=== PATIENT | male | born 1985 | race Hispanic/Latino ===

== ENCOUNTER 2019-01-27 11:56 | Emergency (ER) | payer OTHER ==
[2019-01-27 12:40] LABS: Urine Blood NEGATIVE (NEG); Urine Glucose 2+ (NEG); Urine Protein 1+ (NEG); Urine Specific Gravity 1.025 (1.005-1.030)
[2019-01-27] MEDS ORDERED: KETOROLAC 30 MG/ML INJ ONE (12:40)
[2019-01-27] MEDS ORDERED: NA CHLORIDE 0.9% 1,000 ML ONE (12:40)
[2019-01-27 12:58] LABS: Absolute Lymphocytes (CBC) 1.3 K/uL (0.7-4.9); Absolute Monocytes 0.3 K/uL (0.1-1.3); Absolute Neutrophil 6.8 K/uL (1.8-8.0); Basophils % 0.3 % (0-1.3); Eosinophils % 0.8 % (0-4.4); Lymphocytes % 15.5 % (15.3-44.8); MPV 10.5 fL (7.6-11.3); Monocytes % 3.3 % (3.3-12.3); RBC Red Blood Cell Count 5.43 M/uL (4.33-5.43)
--- NOTE | 2019-01-27 13:01 | RAD REPORT ---
EXAM DESCRIPTION: US - Abdomen Exam Limited - 01/27/2019 12:55 pm CLINICAL HISTORY: Abdominal pain. COMPARISON: None. FINDINGS: The gallbladder wall is not thickened. A 2 centimeter mobile gallstone present. The biliary tree is normal caliber. IMPRESSION: Cholelithiasis without evidence of cholecystitis
[2019-01-27 13:10] LABS: ALT/SGPT 58 U/L (12-78); AST/SGOT 20 U/L (15-37); Albumin 3.9 g/dL (3.4-5.0); Alkaline Phosphatase 109 U/L (45-117); BUN Blood Urea Nitrogen 14 mg/dL (7-18); Bicarbonate 27 mmol/L (21-32); Bilirubin Direct 0.1 mg/dL (0-0.2); Bilirubin Total 0.3 mg/dL (0.2-1.0); Glucose Level 189 mg/dL (74-106); Lipase 86 U/L (73-393); Potassium 4.1 mmol/L (3.5-5.1); Protein, Total 7.8 g/dL (6.4-8.2); Sodium Level 140 mmol/L (136-145)
--- NOTE | 2019-01-27 13:22 | ER ---
Nurse's Notes [facility] Name: Tank Antoine Age: 33 yrs Sex: Male : 1985 Arrival Date: 01/27/2019 Time: 11:58 Bed 18 Private MD: Diagnosis: Cholelithiasis Presentation: 01/27 11:59 Presenting complaint: RUQ pain and N/V since this morning. Transition of care: patient hb was not received from another setting of care. Onset of symptoms was January 27, 2019. Risk Assessment: Do you want to hurt yourself or someone else? Patient reports no desire to harm self or others. Care prior to arrival: None. 11:59 Method Of Arrival: Ambulatory hb 11:59 Acuity: DARIA 3 hb 13:36 Initial Sepsis Screen: Does the patient meet any 2 criteria? No. Patient's initial tw2 sepsis screen is negative. Does the patient have a suspected source of infection? No. Patient's initial sepsis screen is negative. Historical: - Allergies: 12:01 No Known Allergies; hb - Home Meds: 12:01 lisinopril Oral [Active]; Omeprazole Oral [Active]; hb - PMHx: 12:01 GERD; Hypertension; hb - PSHx: 12:01 None; hb - Immunization history:: Adult Immunizations up to date. - Social history:: Smoking status: Patient/guardian denies using tobacco. - Ebola Screening: : No symptoms or risks identified at this time. Screenin:36 Abuse screen: Denies threats or abuse. Nutritional screening: No deficits noted. tw2 Tuberculosis screening: No symptoms or risk factors identified. Fall Risk None identified. Assessment: 12:00 General: Appears in no apparent distress. Behavior is calm, cooperative, appropriate tw2 for age. Pain: Complains of pain in abdomen. Neuro: Level of Consciousness is awake, alert, obeys commands, Oriented to person, place, time, situation. Cardiovascular: Heart tones S1 S2 Patient's skin is warm and dry. Respiratory: Airway is patent Respiratory effort is even, unlabored, Respiratory pattern is regular, symmetrical, Breath sounds are clear bilaterally. GI: Abdomen is round non-distended, Bowel sounds present X 4 quads. Abd is soft and non tender X 4 quads. : No signs and/or symptoms were reported regarding the genitourinary system. EENT: No signs and/or symptoms were reported regarding the EENT system. Derm: No signs and/or symptoms reported regarding the dermatologic system. Musculoskeletal: Range of motion: intact in all extremities. 13:33 Reassessment: Patient appears in no apparent distress at this time. No changes from tw2 previously documented assessment. Patient and/or family updated on plan of care and expected duration. Pain level reassessed. Patient is alert, oriented x 3, equal unlabored respirations, skin warm/dry/pink. Vital Signs: 12:00 BP 133 / 86; Pulse 77; Resp 16; Temp 97.8; Pulse Ox 97% on R/A; Pain 7/10; hb 13:00 BP 146 / 86; Pulse 86; Resp 17; Pulse Ox 97% on R/A; tw2 13:25 BP 118 / 75; Pulse 64; Resp 18; Pulse Ox 99% on R/A; tw2 ED Course: 11:58 Patient arrived in ED. mr 12:00 Triage completed. hb 12:00 Bed in low position. Call light in reach. Pulse ox on. NIBP on. tw2 12:01 Arm band placed on right wrist. hb 12:12 Anayeli Radford FNP-C is PHCP. kb 12:12 Tk Hand MD is Attending Physician. kb 12:12 Carolann Alvarado RN is Primary Nurse. tw2 12:35 No provider procedures requiring assistance completed. Inserted saline lock: 20 gauge tw2 in right antecubital area, using aseptic technique. Blood collected. 12:55 US Abdomen Limited In Process Unspecified. EDMS 13:37 IV discontinued, intact, No redness/swelling at site. Pressure dressing applied. tw2 intact, bleeding controlled, No redness/swelling at site. Pressure dressing applied. Administered Medications: 12:37 Drug: TORadol 30 mg Route: IVP; Site: right antecubital; tw2 13:33 Follow up: Response: No adverse reaction; Pain is decreased tw2 12:39 Drug: NS 0.9% 1000 ml Route: IV; Rate: 1000 ml; Site: right antecubital; tw2 13:31 Follow up: Response: No adverse reaction; IV Status: Order to discontinue infusion; IV tw2 Intake: 100ml ; pt states "they never hooked me up when they brought me back and i am just ready to go home" Intake: 13:31 IV: 100ml; Total: 100ml. tw2 Outcome: 13:22 Discharge ordered by MD. hernandez 13:36 Discharged to home ambulatory. tw2 13:36 Condition: stable 13:36 Discharge instructions given to patient, Instructed on discharge instructions, follow up and referral plans. no drinking with medication, no driving heavy equipment, medication usage, Demonstrated understanding of instructions, follow-up care, medications, Prescriptions given X 2. 13:38 Patient left the ED. tw2 Signatures: Dispatcher [employer] EDMS Anayeli Radford, CASING MACHINE OPERATOR-C CASING MACHINE OPERATOR-Tara Kennedy mr Sarah Spring RN RN hb Wise, Tara, RN RN tw2 Corrections: (The following items were deleted from the chart) 12:02 12:00 Pulse 77bpm; Resp 16bpm; Pulse Ox 97% RA; Temp 97.8F; Pain 7/10; hb hb
--- NOTE | 2019-01-27 13:23 | EDPHYS ---
Physician Documentation [facility] Name: Tank Antoine Age: 33 yrs Sex: Male : 1985 Arrival Date: 01/27/2019 Time: 11:58 Bed 18 Private MD: ED Physician Tk Hand HPI: 01/27 12:25 This 33 yrs old Male presents to ER via Ambulatory with complaints of kb Abdominal Pain. 12:25 The patient presents with abdominal pain in the upper abdomen. Onset: The kb symptoms/episode began/occurred this morning. The symptoms do not radiate. Associated signs and symptoms: Pertinent positives: nausea and vomiting. The symptoms are described as constant. Modifying factors: The symptoms are alleviated by nothing, the symptoms are aggravated by nothing. Severity of pain: At its worst the pain was moderate in the emergency department the pain is unchanged. The patient has experienced a previous episode, last week. Historical: - Allergies: 12:01 No Known Allergies; hb - Home Meds: 12:01 lisinopril Oral [Active]; Omeprazole Oral [Active]; hb - PMHx: 12:01 GERD; Hypertension; hb - PSHx: 12:01 None; hb - Immunization history:: Adult Immunizations up to date. - Social history:: Smoking status: Patient/guardian denies using tobacco. - Ebola Screening: : No symptoms or risks identified at this time. ROS: 12:24 Constitutional: Negative for fever, chills, and weight loss, Cardiovascular: Negative kb for chest pain, palpitations, and edema, Respiratory: Negative for shortness of breath, cough, wheezing, and pleuritic chest pain, Back: Negative for injury and pain, : Negative for injury, bleeding, discharge, and swelling, MS/Extremity: Negative for injury and deformity, Skin: Negative for injury, rash, and discoloration, Neuro: Negative for headache, weakness, numbness, tingling, and seizure. 12:24 Abdomen/GI: Positive for abdominal pain, nausea and vomiting, Negative for diarrhea, constipation, abdominal cramps, abdominal distension, anorexia. Exam: 12:24 Constitutional: This is a well developed, well nourished patient who is awake, alert, kb and in no acute distress. Head/Face: Normocephalic, atraumatic. ENT: Nares patent. No nasal discharge, no septal abnormalities noted. Tympanic membranes are normal and external auditory canals are clear. Oropharynx with no redness, swelling, or masses, exudates, or evidence of obstruction, uvula midline. Mucous membranes moist. Neck: Trachea midline, no thyromegaly or masses palpated, and no cervical lymphadenopathy. Supple, full range of motion without nuchal rigidity, or vertebral point tenderness. No Meningismus. Chest/axilla: Normal chest wall appearance and motion. Nontender with no deformity. No lesions are appreciated. Cardiovascular: Regular rate and rhythm with a normal S1 and S2. No gallops, murmurs, or rubs. Normal PMI, no JVD. No pulse deficits. Respiratory: Lungs have equal breath sounds bilaterally, clear to auscultation and percussion. No rales, rhonchi or wheezes noted. No increased work of breathing, no retractions or nasal flaring. Skin: Warm, dry with normal turgor. Normal color with no rashes, no lesions, and no evidence of cellulitis. MS/ Extremity: Pulses equal, no cyanosis. Neurovascular intact. Full, normal range of motion. Neuro: Awake and alert, GCS 15, oriented to person, place, time, and situation. Cranial nerves II-XII grossly intact. Motor strength 5/5 in all extremities. Sensory grossly intact. Cerebellar exam normal. Normal gait. 12:24 Abdomen/GI: Inspection: obese Bowel sounds: normal, in all quadrants, Palpation: soft, in all quadrants, mild abdominal tenderness, in the right upper quadrant. Vital Signs: 12:00 BP 133 / 86; Pulse 77; Resp 16; Temp 97.8; Pulse Ox 97% on R/A; Pain 7/10; hb 13:00 BP 146 / 86; Pulse 86; Resp 17; Pulse Ox 97% on R/A; tw2 13:25 BP 118 / 75; Pulse 64; Resp 18; Pulse Ox 99% on R/A; tw2 MDM: 12:12 Patient medically screened. kb 12:24 Data reviewed: vital signs, nurses notes. Data interpreted: Pulse oximetry: on room air kb is 97 %. Interpretation: normal. 13:21 Counseling: I had a detailed discussion with the patient and/or guardian regarding: the kb historical points, exam findings, and any diagnostic results supporting the discharge/admit diagnosis, lab results, radiology results, the need for outpatient follow up, a family practitioner, a general surgeon, to return to the emergency department if symptoms worsen or persist or if there are any questions or concerns that arise at home. ED course: Pain is controlled. Pt resting comfortably. Happy with plan of care for outpt follow up with surgeon.. 01/27 12:13 Order name: Urine Dipstick--Ancillary (enter results); Complete Time: 12:51 ss 01/27 12:22 Order name: Basic Metabolic Panel; Complete Time: 13:12 kb 01/27 12:22 Order name: CBC with Diff; Complete Time: 13:35 kb 01/27 12:22 Order name: Hepatic Function; Complete Time: 13:12 kb 01/27 12:22 Order name: Lipase; Complete Time: 13:12 kb 01/27 13:08 Order name: CBC Smear Scan; Complete Time: 13:35 EDMS 01/27 12:22 Order name: IV Saline Lock; Complete Time: 12:41 kb 01/27 12:22 Order name: Labs collected and sent; Complete Time: 12:41 kb 01/27 12:22 Order name: US Abdomen Limited; Complete Time: 13:02 kb Administered Medications: 12:37 Drug: TORadol 30 mg Route: IVP; Site: right antecubital; tw2 13:33 Follow up: Response: No adverse reaction; Pain is decreased tw2 12:39 Drug: NS 0.9% 1000 ml Route: IV; Rate: 1000 ml; Site: right antecubital; tw2 13:31 Follow up: Response: No adverse reaction; IV Status: Order to discontinue infusion; IV tw2 Intake: 100ml ; pt states "they never hooked me up when they brought me back and i am just ready to go home" Disposition: 01/28 06:38 Co-signature as Attending Physician, Tk Hand MD I agree with the assessment and kdr plan of care. Disposition: 01/27/19 13:22 Discharged to Home. Impression: Cholelithiasis. - Condition is Stable. - Discharge Instructions: Cholelithiasis, [id number]. - Prescriptions for Zofran 4 mg Oral Tablet - take 1 tablet by ORAL route every 6 hours As needed; 20 tablet. Diclofenac Sodium 75 mg Oral Tablet, Delayed Release (E.C.) - take 1 tablet by ORAL route 2 times per day As needed; 30 tablet. - Medication Reconciliation Form, Thank You Letter, Antibiotic Education, Prescription Opioid Use, Work release form form. - Follow up: Emergency Department; When: As needed; Reason: Worsening of condition. Follow up: Private Physician; When: 2 - 3 days; Reason: Recheck today's complaints, Continuance of care, Re-evaluation by your physician. Signatures: Dispatcher [employer] EDNC Anayeli Radford, LABORATORY DEVELOPMENT TECHNICIAN-C LABORATORY DEVELOPMENT TECHNICIAN-Tk Lisa MD MD [facility] Sarah Spring, ROEL RN Carolann Alvarado RN RN tw2 Corrections: (The following items were deleted from the chart) 01/27 13:38 13:22 01/27/2019 13:22 Discharged to Home. Impression: Cholelithiasis. Condition is tw2 Stable. Forms are Medication Reconciliation Form, Thank You Letter, Antibiotic Education, Prescription Opioid Use. Follow up: Emergency Department; When: As needed; Reason: Worsening of condition. Follow up: Private Physician; When: 2 - 3 days; Reason: Recheck today's complaints, Continuance of care, Re-evaluation by your physician. kb
[2019-01-27 13:34] LABS: Blood Morphology Comment NOT SEEN (NOT SEEN); Platelet Estimate DECR; Urine White Blood Cell Casts OK
== END 2019-01-27 13:38 | disposition home or self-care (01) ==
LOC: ER 11:56
DX: K80.20 Calculus of gallbladder without cholecystitis without obstruction (principal); K21.9 Gastro-esophageal reflux disease without esophagitis; I10 Essential (primary) hypertension
CPT/HCPCS: 36415; 76705; 80048; 80076; 81003; 83690; 85025; 96361; 96374; 99284; J7030

== ENCOUNTER 2019-01-29 06:22 | Day surgery (SDC) | payer OTHER ==
[2019-01-29] MEDS ORDERED: Ringers Lactate 1,000 ML IV ONE ×2 (07:02→08:24)
[2019-01-29] MEDS ORDERED: CEFOXITIN/SWI 1gm 1 GM/10 ML SYR ONE (07:02)
[2019-01-29] MEDS ORDERED: BUPIVACAINE 0.5% PF 10 ML VIAL ONE (07:12)
[2019-01-29] MEDS ORDERED: PROPOFOL 200 MG/20 ML VIAL IV ONE (07:26)
[2019-01-29] MEDS ORDERED: FENTANYL CITR 100 MCG/2 ML ONE ×2 (07:26→08:13)
[2019-01-29] MEDS ORDERED: MIDAZOLAM HCL 2 MG/2 ML INJ ONE (07:26)
[2019-01-29] MEDS ORDERED: ROCURONIUM 50 MG/5 ML VIAL IV ONE (07:26)
[2019-01-29] MEDS ORDERED: LIDOCAINE 1% MPF 5 ML VIAL ONE (07:26)
[2019-01-29] MEDS ORDERED: GLYCOPYRROLATE 0.2 MG/ML SYR ONE (08:01)
[2019-01-29] MEDS ORDERED: KETOROLAC 30 MG/ML INJ ONE (08:01)
[2019-01-29] MEDS ORDERED: NEOSTIGMINE 1 MG/ML -10 ML VIAL ONE (08:02)
[2019-01-29] MEDS ORDERED: ONDANSETRON 4 MG/2 ML VIAL ONE (08:02)
[2019-01-29] MEDS ORDERED: PROMETHAZINE 25 MG/ML VIAL ONE (09:27)
[2019-01-29] MEDS ORDERED: CODEINE 30MG/APAP 300MG TAB ONE (11:16)
--- NOTE | 2019-01-29 20:03 | OP ---
Date of Procedure: 01/29/2019 Surgeon: Gregory Leong MD Preoperative Diagnosis: Symptomatic cholelithiasis. Postoperative Diagnosis: Symptomatic cholelithiasis. Procedure: Laparoscopic cholecystectomy. Estimated Blood Loss: Minimal. Specimen: Gallbladder. Findings: As above. Anesthesia: General. Complications: None. Disposition: The patient tolerated the procedure in stable condition and taken to Recovery in good g eneral condition. Procedure In Detail: The patient was brought to the OR and placed in supine position. General anest hesia begun. The patient was prepped and draped in usual sterile fashion. Marcaine 0.5% was infiltr ated locally. A 15-blade was used to make a 1 cm supraumbilical incision, extended it as needed for removal of the gallbladder. Subcutaneous tissue divided. The fascia was identified and divided. A #1 Vicryl stay suture was placed. Peritoneal cavity was entered with sharp and blunt dissection. A 12-mm trocar was placed into the peritoneal cavity under direct vision. Pneumoperitoneum was establi shed and then three 5 mm trocars placed, 1 in the epigastrium just to the right of midline, 2 in the right subcostal region. Laparoscopy revealed inflammation of the gallbladder. Fundus retracted supe riorly. Infundibulum was identified and retracted inferolaterally. Cystic duct and cystic artery we re clearly identified with blunt dissection. Clips placed. Both structures were divided. Cautery w as used to remove the gallbladder from the liver bed. Bleeding on the liver bed controlled with caut deanna. The gallbladder was retrieved through the umbilicus via an EndoCatch bag. Right upper quadrant was irrigated. Effluent was clear. No evidence of bleeding or bowel injury appreciated. Subsequen tly, all trocars were removed under direct vision. Stay sutures were tied to each other across the f ascial defect. Subcutaneous wounds irrigated. Bleeding controlled with cautery. A 3-0 chromic used to approximate the subcutaneous tissue, and gerardo used to close the skin. Sterile dressing was ap plied. The patient was awakened and taken to Recovery in good general condition. /MODL Voice ID: [id number] Report ID: [id number]
--- NOTE | 2019-01-29 20:03 | DS ---
Date of Discharge: 01/29/2019 Discharge Note: The patient will go to Day Surgery and home when stable. Disposition: Home. Condition: Stable. Discharge Instructions: Resume home medications and diet. Activity as tolerated. No heavy lifting. Remove outer dressing in 2 days. Shower. Keep wound clean and dry. Follow up in my office in 1 w la posta. Call for appointment. Tylenol No. 3 one tablet p.o. q.4h. p.r.n. pain. Incentive spirometry a s ordered. /MODL Voice ID: [id number] Report ID: [id number]
== END 2019-01-29 11:30 | disposition home or self-care (01) ==
LOC: OR 06:22
PROVIDERS: ATTEND Surgery
PROC: 0FT44ZZ Resection of Gallbladder, Percutaneous Endoscopic Approach (ICD-10-PCS; principal; 2019-01-29 07:30)
DX: K80.10 Calculus of gallbladder with chronic cholecystitis without obstruction (principal); I10 Essential (primary) hypertension; G47.33 Obstructive sleep apnea (adult) (pediatric); K21.9 Gastro-esophageal reflux disease without esophagitis
CPT/HCPCS: 88304; J2250; J2405; J2550; J2704; J2710; J3010